=== PATIENT | female | born 1965 | race Caucasian/White ===

== ENCOUNTER → 2021-02-06 15:13 | Outpatient (CLI) | payer SELFPAY ==
--- NOTE | ~2021-02-06 | XR_ITS ---
EXAMINATION: XR knee LT 2V DATE: 02/06/2021 15:57 INDICATION: Left knee pain. TECHNIQUE: 2 views of left knee were obtained. COMPARISON: None. FINDINGS: Bone alignment is normal. No fracture. Joint spaces are normal. There is a small knee joint effusion. IMPRESSION: 1. Small left knee joint effusion. Reviewed, dictated and finalized at location A.
== END ==
PROVIDERS: Visit Provider Nurse Practitioner Family
DX: M25.462 Effusion, left knee (principal)
CPT/HCPCS: 73560